=== PATIENT | female | born 1965 | race Caucasian/White ===

== ENCOUNTER 2017-06-18 16:37 | Observation (INO) | payer BC ==
[~2017-06-18] VITALS: Ht 162.6 cm; Wt 91.7 kg
[2017-06-18 17:13] LABS: HEMATOCRIT 42.9 % (36.0-46.0); HEMOGLOBIN 14.6 G/DL (11.9-15.5); MCH 32.4 PG (29.0-34.0); MCV 95.3 FL (83-99); PLATELET COUNT 324 K/uL (156-360); RBC DIS.WIDTH-CV 12.2 % (11.8-14.6); RBC DIS.WIDTH-SD 43.2 % (39-53); WHITE BLOOD COUNT 7.1 K/uL (4.1-10.2)
[2017-06-18 17:18] LABS: APPEARANCE CLEAR ((CLEAR)); BILIRUBIN NEGATIVE; BLOOD MODERATE; COLOR COLORLESS ((YELLOW)); GLUCOSE (STRIP) NEGATIVE; KETONES NEGATIVE; LEUKOCYTES NEGATIVE; NITRITE NEGATIVE; PROTEIN (STRIP) NEGATIVE; SPECIFIC GRAVITY 1.003 (1.000-1.030); UROBILINOGEN 0.2 MG/DL (0.2-1.0)
[2017-06-18 17:22] LABS: BACTERIA NONE SEEN /HPF; EPITHELIAL CELLS RARE /HPF; MUCUS NONE SEEN /LPF; RED BLOOD CELLS 0-5 /HPF (0-5); UCUL ADDED? NO; WHITE BLOOD CELLS 0-5 /HPF (0-5)
[2017-06-18 17:25] LABS: ALBUMIN 4.2 g/dL (3.2-4.8); CHLORIDE 103 mEq/L (99-109); POTASSIUM 3.2 mEq/L (3.7-5.4); SODIUM 139 mEq/L (136-147)
[2017-06-18 17:27] LABS: GLUCOSE 128 mg/dL (70-99)
[2017-06-18 17:28] LABS: TOTAL PROTEIN 7.3 g/dL (6.4-8.3)
[2017-06-18 17:30] LABS: TOTAL BILIRUBIN 0.4 mg/dL (0.0-1.0)
[2017-06-18 17:31] LABS: ALKALINE PHOSPHATASE 94 IU/L (3-129); CREATININE 0.7 mg/dL (0.6-1.3); GFR ESTIMATE (CALCULATED) > 59 mL/min/; UREA NITROGEN (BUN) 11 mg/dL (9-23)
[2017-06-18 17:33] LABS: AST (GOT) 15 IU/L (2-34)
[2017-06-18 17:34] LABS: ALT (GPT) 16 IU/L (3-49); DIRECT BILIRUBIN 0.2 mg/dL (0.0-0.3)
[2017-06-18 17:35] LABS: LIPASE 22 U/L (1.0-51.0); TROP-I INTERPRETATION NEGATIVE; TROPONIN-I < 0.01 ng/mL (0.0-0.30)
[2017-06-18] MEDS ORDERED: PANTOPRAZOLE SO40 MG PO (17:58)
[2017-06-18] MEDS ORDERED: LO-DOSE ASPIRIN81 M2 PO (17:58)
[2017-06-18] MEDS ORDERED: ERGOCALCIF50000 UNIT PO (17:58)
[2017-06-18 20:10] LABS: HDL CHOLESTEROL 47 MG/DL (Desirable>=50); LDL CHOLESTEROL 114 mg/dL (Desirable<100); NON-HDL CHOLESTEROL 134 mg/dL (Desirable<160); TOTAL CHOLESTEROL 181 mg/dL (Desirable<200); TRIGLYCERIDES 98 MG/DL (Normal: <150)
[2017-06-18 20:17] VITALS: BP 129/62
[2017-06-18 23:29] VITALS: BP 101/54
[2017-06-19 00:04] LABS: TROP-I INTERPRETATION NEGATIVE; TROPONIN-I < 0.01 ng/mL (0.0-0.30)
[2017-06-19 03:38] VITALS: BP 101/58
[2017-06-19 06:37] LABS: TROP-I INTERPRETATION NEGATIVE; TROPONIN-I < 0.01 ng/mL (0.0-0.30)
[2017-06-19 07:14] LABS: CHLORIDE 108 MEQ/L (99-109); CREATININE 0.8 MG/DL (0.6-1.3); GFR ESTIMATE (CALCULATED) > 59 mL/min/; GLUCOSE 103 mg/dL (70-99); SODIUM 141 MEQ/L (136-147); UREA NITROGEN (BUN) 12 mg/dL (9-23)
[2017-06-19 08:00] VITALS: BP 121/69
[2017-06-19 09:40] LABS: HEMOGLOBIN A1c (GLYCOHEMOGLOB) 5.3 % (Below 5.7)
== END 2017-06-19 11:42 | disposition home or self-care (01) ==
LOC: EME 16:37 → EDOF 18:44 → 5WEST 18:44 → EDOF 18:44 → ENRESERV 18:46 → 5WEST 20:00
PROVIDERS: Hospitalist
DX: I20.8 Other forms of angina pectoris (principal); R00.2 Palpitations; E87.6 Hypokalemia; Z86.711 Personal history of pulmonary embolism; R94.31 Abnormal electrocardiogram [ECG] [EKG]; R42 Dizziness and giddiness; R53.1 Weakness; R07.89 Other chest pain; R20.2 Paresthesia of skin; R03.0 Elevated blood-pressure reading, without diagnosis of hypertension; F17.200 Nicotine dependence, unspecified, uncomplicated; Z82.49 Family history of ischemic heart disease and other diseases of the circulatory system; K21.9 Gastro-esophageal reflux disease without esophagitis; Z87.19 Personal history of other diseases of the digestive system; Z90.49 Acquired absence of other specified parts of digestive tract; E66.9 Obesity, unspecified; Z68.34 Body mass index [BMI] 34.0-34.9, adult
CPT/HCPCS: 70450; 71046; 80048; 80061; 80076; 81003; 83036; 83690; 84484; 85027; 85379; 93005; 93880; 99281; 99285; G0378; G8978 GP CH; G8979 GP CH; G8980 GP CH; G8987 GO CH; G8988 GO CH; G8989 GO CH; J1650; J7030